=== PATIENT | male | born 1985 | race Caucasian/White ===

== ENCOUNTER 2017-01-05 16:32 | Emergency (ER) | payer MEDICAID ==
[~2017-01-05] VITALS: Ht 170.2 cm; Wt 79.6 kg
[2017-01-05 17:02] VITALS: BP 111/80
--- NOTE | 2017-01-05 17:08 | NUR ---
PATIENT PRESENTS TO ED WITH ANXIETY---SOB,LIGHTHEADNESS, . PT STATES . DENIES N/V/D; SKIN IS PINK/WARM/DRY; AAOX4 WITH EVEN AND STEADY GAIT; LUNGS CLEAR BL; HR EVEN AND REGULAR; PT DENIES ANY FEVER, CP, OR COUGH AT THIS TIME; PATIENT STATES PAIN OF 0/10 AT THIS TIME; VSS; PATIENT POSITIONED FOR COMFORT; HOB ELEVATED; BEDRAILS UP X2; BED DOWN. ER MD MADE AWARE OF PT STATUS.
--- NOTE | 2017-01-05 17:10 | NUR ---
PATIENT AMBULATED TO ER OF2.
--- NOTE | 2017-01-05 17:25 | NUR ---
SEEN BY ERMD IN OF
--- NOTE | 2017-01-05 17:40 | NUR ---
NO SIGN OF DISTRESS/ANXIETY. PATIENT VERY CALM
[2017-01-05 17:42] VITALS: BP 118/88
--- NOTE | 2017-01-05 17:42 | NUR ---
Patient discharged with v/s stable. Written and verbal after care instructions given and explained. Patient verbalized understanding. Ambulatory with steady gait. All questions addressed prior to discharge. Advised to follow up with PMD.
== END 2017-01-05 17:42 | disposition home or self-care (01) ==
LOC: MED 16:32
DX: F41.9 Anxiety disorder, unspecified (principal)
CPT/HCPCS: 99284

== ENCOUNTER 2018-12-22 18:41 | Emergency (ER) | payer MEDICAID ==
[~2018-12-22] VITALS: Ht 172.7 cm; Wt 80.5 kg
[2018-12-22 18:43] VITALS: BP 120/91
--- NOTE | 2018-12-22 18:46 | NUR ---
Patient ambulated to bed 8. RN evaluating patient at bedside.
--- NOTE | 2018-12-22 18:59 | NUR ---
33/M C/O DIFFICULTY BREATHING& LEFT CHEST PAIN , NAUSEA, DIZZY X 2 DAYS ALONG WITH INTERMITENT EPIGASTRIC PAIN X1 WEEK.MEDHX:ANXIETY. RX:ALPRAZOLAM, ZOLOFT. PATIENT STATES PAIN OF 5/10 AT THIS TIME; PATIENT POSITIONED FOR COMFORT; HOB ELEVATED; BEDRAILS UP X1; BED DOWN. ER MD MADE AWARE OF PT STATUS.
--- NOTE | 2018-12-22 19:07 | NUR ---
Pt report given to JUAN MILNER. Transfer of care at this time.
--- NOTE | 2018-12-22 19:15 | NUR ---
PT C/O OF DIFFICULTY BREATHING. RESPIRATIONS EVEN AND UNLABORED. RESPIRATIONS AT 15 AND OXYGEN SATURATION AT 97%. PT IN HIGH FOWLERS POSITION AND INSTRUCTED TO TAKE SLOW DEEP BREATHES IN THROUGH NOSE AND OUT MOUTH.
--- NOTE | 2018-12-22 19:23 | NUR ---
Dr. Martinez examining patient.
[2018-12-22] MEDS ORDERED: LORazepam 2 MG/ML VIAL IM ONE (19:40)
--- NOTE | 2018-12-22 19:49 | NUR ---
PT REFUSED MEDICATION. PER PT HIS HOME MEDICATION THAT HE TOOK PRIOR TO ER VISIT IS WORKING. ERMD NOTIFIED.
--- NOTE | 2018-12-22 19:49 | NUR ---
PT REFUSED MEDICATION. MEDICATION NOT GIVEN. RETURNED MEDICATION TO [facility]
--- NOTE | 2018-12-22 20:55 | NUR ---
PT RESTING IN BED COMFORTABLY ON CELL PHONE. VSS. WILL CONTINUE TO MONITOR.
--- NOTE | 2018-12-22 21:18 | NUR ---
Patient discharged with v/s stable. Written and verbal after care instructions given and explained. Instructed to avoid caffeine, relax and avoid stressful circumstances. Patient verbalized understanding. Ambulatory with steady gait. All questions addressed prior to discharge. Advised to follow up with PMD.
[2018-12-22 21:19] VITALS: BP 131/89
== END 2018-12-22 21:18 | disposition home or self-care (01) ==
LOC: MED 18:41
DX: F41.9 Anxiety disorder, unspecified (principal)
CPT/HCPCS: 71045; 93005; 96372; 99284; Q0092; J2060

== ENCOUNTER 2018-12-25 13:30 | Emergency (ER) | payer MEDICAID ==
[~2018-12-25] VITALS: Ht 170.2 cm; Wt 79.4 kg
[2018-12-25 13:35] VITALS: BP 135/87
[2018-12-25] MEDS ORDERED: GABA100C PO (13:44)
[2018-12-25] MEDS ORDERED: HYDR25CA1 PO (13:44)
[2018-12-25] MEDS ORDERED: ALPR1TAB17 PO (13:44)
--- NOTE | 2018-12-25 14:47 | NUR ---
PT AMBULATED TO ER BED 4
--- NOTE | 2018-12-25 15:02 | NUR ---
BIBA WITH C/O CHEST PAIN AND SOB SINCE THIS MORNING. PT REPORTS NOT TAKING RX MEDICATION LAST NIGHT; HX OF ANXIETY. UNABLE TO RECALL NAME OF MEDS. DENIES ANY CHEST PAIN AT THIS TIME. RESP EVEN AND UNLABORED. VSS.
[2018-12-25] MEDS ORDERED: DIAZEPAM 5 MG TAB PO ONE (15:05)
[2018-12-25 15:38] LABS: BASOPHILS % (AUTO) 0.4 % (0.0-2.0); EOSINOPHILS % (AUTO) 0.3 % (0.0-4.0); HEMATOCRIT 47.4 % (36-52); HEMOGLOBIN 16.2 g/dL (12.0-18.0); LYMPHOCYTES # (AUTO) 1.3 K/uL (2.0-11.5); LYMPHOCYTES % (AUTO) 20.3 % (20.5-51.1); MEAN CORPUSCULAR HEMOGLOBIN 31 pg (27-31); MEAN CORPUSCULAR HGB CONC 34 g/dL (33-37); MEAN CORPUSCULAR VOLUME 89.9 fL (80-94); MONOCYTES # (AUTO) 0.5 K/uL (0.8-1.0); NEUTROPHILS # (AUTO) 4.6 K/uL (1.8-7.7); PLATELET COUNT (AUTO) 235 K/uL (140-450); RED BLOOD CELL COUNT(AUTO) 5.27 MIL/uL (4.20-6.10); WHITE BLOOD COUNT (AUTO) 6.4 K/uL (4.8-10.8)
[2018-12-25 15:47] LABS: ANION GAP 10.4 (8-16); CARBON DIOXIDE 27.3 mmol/L (21-32); CREATININE 1.1 mg/dL (0.7-1.3); POTASSIUM 3.7 mmol/L (3.5-5.1)
[2018-12-25 15:52] LABS: ALBUMIN 3.9 g/dL (3.4-5.0); TOTAL BILIRUBIN 0.7 mg/dL (0.0-1.0)
--- NOTE | 2018-12-25 16:50 | NUR ---
PT VERBALIZED FEELING BETTER AFTER MEDICATION ADMINISTRATION. RESTING COMFORTABLY IN BED;VSS
[2018-12-25 17:01] VITALS: BP 126/82
--- NOTE | 2018-12-25 17:01 | NUR ---
Patient discharged with v/s stable. Written and verbal after care instructions given and explained. Patient alert, oriented and verbalized understanding of instructions. Ambulatory with steady gait. All questions addressed prior to discharge. ID band removed. Patient advised to follow up with PMD. Rx of VALIUM 5 MG given. Patient educated on indication of medication including possible reaction and side effects. Opportunity to ask questions provided and answered.
== END 2018-12-25 17:01 | disposition home or self-care (01) ==
LOC: MED 13:30
DX: F41.9 Anxiety disorder, unspecified (principal); I10 Essential (primary) hypertension; Z79.899 Other long term (current) drug therapy
CPT/HCPCS: 36415; 80053; 85025; 99284

== ENCOUNTER 2019-07-11 11:04 | Emergency (ER) | payer SELFPAY ==
[~2019-07-11] VITALS: Ht 171.4 cm; Wt 78.0 kg
[~2019-07-11 11:04] MED LIST: ALPR1TAB17 PO; GABA100C PO; HYDR25CA1 PO
[2019-07-11 11:09] VITALS: BP 117/71
--- NOTE | 2019-07-11 11:17 | NUR ---
AMB TO BED 03
--- NOTE | 2019-07-11 11:28 | NUR ---
PANIC ATTACK TODAY, TOOK XANAX 2X (TOTAL DOSE 2 MG), STATES "IT FEELS LIKE IT'S KIND OF KICKING IN". PT FEELS DIZZY NOW. AMB STEADY GAIT. DENIES CP, SOB AT THIS TIME. STATES PALPITATIONS EARLIER TODAY.PT AWAKE , ALERT, SCE,CBS BLF,NOT IN PAIN. HX- ANXIETY
[2019-07-11 12:40] VITALS: BP 110/72
--- NOTE | 2019-07-11 12:42 | NUR ---
Patient left with v/s stable . Patient left without discharge instruction. Ambulatory with steady gait.
--- NOTE | 2019-07-11 12:45 | NUR ---
Charge nurse Trudy sharpe.
== END 2019-07-11 12:45 | disposition home or self-care (01) ==
LOC: MED 11:04
DX: F41.9 Anxiety disorder, unspecified (principal); I10 Essential (primary) hypertension; Z79.899 Other long term (current) drug therapy
CPT/HCPCS: 99281

== ENCOUNTER 2019-10-27 15:29 | Emergency (ER) | payer MEDICAID ==
[~2019-10-27] VITALS: Ht 172.7 cm; Wt 81.6 kg
[2019-10-27 15:31] VITALS: BP 125/105
--- NOTE | 2019-10-27 15:38 | NUR ---
Patient ambulated to bed to bed 6. RN evaluating patient at bedside.
--- NOTE | 2019-10-27 15:48 | NUR ---
c/o sob with the slightest of activities when a couple of weeks pt states he is running 6min /mile. no accessory muscle use noted, full clear speech---adds he feels as he cant catch a deep inspiration denies cardiac or lung disease.
--- NOTE | 2019-10-27 16:23 | NUR ---
Dr. Wahl is evaluating the patient at bedside.
[2019-10-27] MEDS ORDERED: KETOROLAC 30 MG/ML VIAL IVP ONE (16:30)
[2019-10-27] MEDS ORDERED: NACL 0.9% 1,000 ML IV ONE (16:30)
[2019-10-27 16:52] LABS: BASOPHILS # (AUTO) 0.1 K/uL (0.00-0.22); BASOPHILS % (AUTO) 0.5 % (0.0-2.0); EOSINOPHILS # (AUTO) 0.1 K/uL (0-0.4); EOSINOPHILS % (AUTO) 0.7 % (0.0-4.0); HEMOGLOBIN 16.9 g/dL (12.0-18.0); LYMPHOCYTES % (AUTO) 7.5 % (20.5-51.1); MEAN CORPUSCULAR HEMOGLOBIN 32 pg (27-31); MEAN CORPUSCULAR HGB CONC 34 g/dL (33-37); MEAN CORPUSCULAR VOLUME 94.3 fL (80-94); MONOCYTES # (AUTO) 1.3 K/uL (0.8-1.0); MONOCYTES % (AUTO) 10.3 % (1.7-9.3); NEUTROPHILS # (AUTO) 10.6 K/uL (1.8-7.7); PLATELET COUNT (AUTO) 270 K/uL (140-450); RED CELL DISTRIBUTION WIDTH 14.7 % (11.6-13.7)
[2019-10-27 19:11] LABS: ANION GAP 19.5 (8-16); CARBON DIOXIDE 20.3 mmol/L (21-32); CREATININE 1.7 mg/dL (0.6-1.3); POTASSIUM 3.8 mmol/L (3.5-5.1)
[2019-10-27 19:21] VITALS: BP 138/72
--- NOTE | 2019-10-27 19:22 | NUR ---
Patient discharged with v/s stable. Written and verbal after care instructions given and explained. Patient alert, oriented and verbalized understanding of instructions. Ambulatory with steady gait. All questions addressed prior to discharge. ID band removed. Patient advised to follow up with PMD. Rx NO given. Patient educated on indication of medication including possible reaction and side effects. Opportunity to ask questions provided and answered.
== END 2019-10-27 19:22 | disposition home or self-care (01) ==
LOC: MED 15:29
DX: F41.9 Anxiety disorder, unspecified (principal); R06.02 Shortness of breath; R42 Dizziness and giddiness
CPT/HCPCS: 36415; 80048; 85025; 96361; 96374; 99283; J1885; J7030

== ENCOUNTER 2019-12-25 09:38 | Emergency (ER) | payer MEDICAID ==
[~2019-12-25] VITALS: Ht 170.2 cm; Wt 81.6 kg
[2019-12-25 09:42] VITALS: BP 158/106
--- NOTE | 2019-12-25 09:56 | NUR ---
34/M STATES WOKE UP FEELING "HEAVY" WITH SHAKINESS AND CHILLS X 2 DAYS A/W NAUSEA. PER PT LAST DRINK 2 DAYS AGO APROXIMATELY 750ML OF VODKA. PT PRESENTS HYPERTENSIVE, EUPNIC, AFEBRILE, A/OX4, AMBULATORY. COMPLAINTS OF PAIN ON THE LUQ, INTERMITTENT, ACHY/THROBBING SINCE LAST NIGHT. WANTS HIS "LIVER CHECKED". DENIES VOMITING, FEVER, COUGH, SOB. APPEARS NAD. FULL CLEAR SENTENCES. HX ALCOHOL ABUSE, ANXIETY RX ZOLOFT,XANAX, VISTARIL
--- NOTE | 2019-12-25 10:13 | NUR ---
DR. HENDRICKS EVALUATING PT AT BEDSIDE
--- NOTE | 2019-12-25 10:59 | NUR ---
PROGRAM WRITER AT BEDSIDE FOR BLOOD DRAW
[2019-12-25 11:36] LABS: BASOPHILS # (AUTO) 0.1 K/uL (0.00-0.22); BASOPHILS % (AUTO) 1.2 % (0.0-2.0); EOSINOPHILS % (AUTO) 0.6 % (0.0-4.0); HEMOGLOBIN 15.8 g/dL (12.0-18.0); LYMPHOCYTES # (AUTO) 1.2 K/uL (2.0-11.5); MEAN CORPUSCULAR HEMOGLOBIN 32 pg (27-31); MEAN CORPUSCULAR HGB CONC 34 g/dL (33-37); MEAN CORPUSCULAR VOLUME 95.6 fL (80-94); MONOCYTES # (AUTO) 0.7 K/uL (0.8-1.0); MONOCYTES % (AUTO) 10.8 % (1.7-9.3); NEUTROPHILS # (AUTO) 4.5 K/uL (1.8-7.7); NEUTROPHILS % (AUTO) 68.4 % (42.2-75.2); PLATELET COUNT (AUTO) 306 K/uL (140-450); RED BLOOD CELL COUNT(AUTO) 4.92 MIL/uL (4.20-6.10); RED CELL DISTRIBUTION WIDTH 13.8 % (11.6-13.7); WHITE BLOOD COUNT (AUTO) 6.5 K/uL (4.8-10.8)
[2019-12-25 12:03] LABS: ALBUMIN 3.9 g/dL (3.4-5.0); ANION GAP 14.5 (8-16); CARBON DIOXIDE 25.5 mmol/L (21-32); TOTAL BILIRUBIN 0.5 mg/dL (0.0-1.0)
--- NOTE | 2019-12-25 12:12 | NUR ---
DR HENDRICKS SPEAKING W/ PT AT BEDSIDE
[2019-12-25 12:13] VITALS: BP 150/102
== END 2019-12-25 12:13 | disposition home or self-care (01) ==
LOC: MED 09:38
DX: F10.239 Alcohol dependence with withdrawal, unspecified (principal); F41.9 Anxiety disorder, unspecified; I10 Essential (primary) hypertension; Z02.89 Encounter for other administrative examinations; Z79.899 Other long term (current) drug therapy
CPT/HCPCS: 36415; 80053; 85025; 85610; 99283

== ENCOUNTER 2020-02-29 21:41 | Emergency (ER) | payer MEDICAID ==
[~2020-02-29] VITALS: Ht 170.2 cm; Wt 83.9 kg
[2020-02-29 21:46] VITALS: BP 140/106
[2020-02-29] MEDS ORDERED: MULTIVITAMIN-12 10 ML, THIAMINE 100 MG, FOLIC ACID 1 MG, MAGNESIUM SULFATE 50% 2,000 MG... IV SCH ×5 (22:00)
[2020-02-29] MEDS ORDERED: LORazepam 2 MG/ML VIAL IVP ONE (22:15)
[2020-02-29] MEDS ORDERED: MAG SULF 2000 MG/WATER PREMIX 50 ML IV ONE (22:26)
[2020-02-29] MEDS ORDERED: THIAMINE 200 MG/2 ML VIAL ONE (22:27)
[2020-02-29] MEDS ORDERED: FOLIC ACID 5 MG/ML SYR ONE (22:28)
[2020-02-29] MEDS ORDERED: MULTIVITAMIN-12 10 ML VIAL IV ONE (22:28)
[2020-02-29 22:32] LABS: BASOPHILS % (AUTO) 0.5 % (0.0-2.0); EOSINOPHILS # (AUTO) 0.1 K/uL (0-0.4); EOSINOPHILS % (AUTO) 0.9 % (0.0-4.0); HEMATOCRIT 45.2 % (36-52); HEMOGLOBIN 15.7 g/dL (12.0-18.0); LYMPHOCYTES # (AUTO) 1.3 K/uL (2.0-11.5); LYMPHOCYTES % (AUTO) 18.2 % (20.5-51.1); MEAN CORPUSCULAR HEMOGLOBIN 33 pg (27-31); MEAN CORPUSCULAR HGB CONC 35 g/dL (33-37); MEAN CORPUSCULAR VOLUME 93.5 fL (80-94); MONOCYTES # (AUTO) 0.5 K/uL (0.8-1.0); MONOCYTES % (AUTO) 7.8 % (1.7-9.3); NEUTROPHILS % (AUTO) 72.6 % (42.2-75.2); PLATELET COUNT (AUTO) 312 K/uL (140-450); RED BLOOD CELL COUNT(AUTO) 4.83 MIL/uL (4.20-6.10); RED CELL DISTRIBUTION WIDTH 14.3 % (11.6-13.7); WHITE BLOOD COUNT (AUTO) 6.9 K/uL (4.8-10.8)
[2020-02-29 22:46] LABS: ALBUMIN 3.7 g/dL (3.4-5.0); ANION GAP 16.4 (8-16); CARBON DIOXIDE 22.1 mmol/L (21-32); CREATININE 1.3 mg/dL (0.6-1.3); POTASSIUM 3.5 mmol/L (3.5-5.1); TOTAL BILIRUBIN 0.5 mg/dL (0.0-1.0)
[2020-02-29] MEDS ORDERED: INTUBATION KIT MC ONE (23:47)
[2020-03-01 01:11] VITALS: BP 139/85
== END 2020-03-01 01:12 | disposition home or self-care (01) ==
LOC: MED 21:41
DX: F10.10 Alcohol abuse, uncomplicated (principal); I10 Essential (primary) hypertension; F41.9 Anxiety disorder, unspecified; Z79.899 Other long term (current) drug therapy
CPT/HCPCS: 36415; 80053; 85025; 96365; 96366; 96375; 99284; A9153; J2060; J3411; J3475; J3490

== ENCOUNTER 2020-07-21 11:40 | Emergency (ER) | payer MEDICAID ==
[~2020-07-21] VITALS: Ht 170.2 cm; Wt 85.3 kg
[2020-07-21 11:43] VITALS: BP 129/91
--- NOTE | 2020-07-21 11:45 | NUR ---
Patient ambulated to bed 9 with steady/even gait.
--- NOTE | 2020-07-21 11:55 | NUR ---
35 y/o M coming in from home with c/c vomiting x 3 days. Patient states he is experiencing "alcohol withdraw symptoms," states he has experienced this before but never this bad. Patient states nausea and vomiting x 4 episodes of clear/yellowish liquid since this morning. Pt states associated dizziness, headache x this morning, heartburn x yesterday. Pt states headache to bilateral temporal region of head, 6/10, sharp/intermittent, non-radiating. Pt presents with slight tremors to right hand. Pt admits to alcohol usage; states he drank 2 pints of vodka last night around 11pm, denies any beers, street drugs. Pt denies fever/chills, chest pain, cough, abdominal pain. Pt states he took Tums and Pepto bismo prior to arrival with no relief. Pt placed onto school lunch monitor. Bed locked in lowest position, side rails x 1, call light in reach. PMH: Anxiety Meds: Xanax NKA Sx: Denies
--- NOTE | 2020-07-21 12:25 | NUR ---
Note undone in EDM - 07/21/20 at 1230 by MEDJAIME 35 y/o M coming in from home with c/c vomiting x 3 days. Patient states he is experiencing "alcohol withdraw symptoms," states he has experienced this before but never this bad. Patient states nausea and vomiting x 4 episodes of clear/yellowish liquid since this morning. Pt states associated dizziness, headache x this morning, heartburn x yesterday. Pt states headache to bilateral temporal region of head, 6/10, sharp/intermittent, non-radiating. Pt presents with slight tremors to right hand. Pt admits to alcohol usage; states he drank 2 pints of vodka last night around 11pm, denies any beers, street drugs. Pt denies fever/chills, chest pain, cough, abdominal pain. Pt states he took Tums and Pepto bismo prior to arrival with no relief. Pt placed onto oracle fusion middleware developer. Bed locked in lowest position, side rails x 1, call light in reach. PMH: Anxiety Meds: Xanax NKA Sx: Denies
--- NOTE | 2020-07-21 12:50 | NUR ---
Lab at bedside
[2020-07-21 13:03] LABS: BASOPHILS # (AUTO) 0.1 K/uL (0.00-0.22); BASOPHILS % (AUTO) 1.8 % (0.0-2.0); EOSINOPHILS # (AUTO) 0.1 K/uL (0-0.4); EOSINOPHILS % (AUTO) 1.3 % (0.0-4.0); HEMATOCRIT 45.5 % (36-52); HEMOGLOBIN 15.5 g/dL (12.0-18.0); LYMPHOCYTES # (AUTO) 1.3 K/uL (2.0-11.5); MEAN CORPUSCULAR HEMOGLOBIN 32 pg (27-31); MEAN CORPUSCULAR HGB CONC 34 g/dL (33-37); MONOCYTES # (AUTO) 0.3 K/uL (0.8-1.0); MONOCYTES % (AUTO) 5.1 % (1.7-9.3); NEUTROPHILS # (AUTO) 3.4 K/uL (1.8-7.7); NEUTROPHILS % (AUTO) 65.8 % (42.2-75.2); PLATELET COUNT (AUTO) 292 K/uL (140-450); RED BLOOD CELL COUNT(AUTO) 4.79 MIL/uL (4.20-6.10); RED CELL DISTRIBUTION WIDTH 13.8 % (11.6-13.7); WHITE BLOOD COUNT (AUTO) 5.1 K/uL (4.8-10.8)
[2020-07-21] MEDS ORDERED: chlordiazePOXIDE 25 MG CAP PO SCH (13:10)
[2020-07-21] MEDS ORDERED: ONDANSETRON 4 MG/2 ML VIAL IVP ONE (13:10)
[2020-07-21] MEDS ORDERED: LORazepam 2 MG/ML VIAL IVP ONE (13:10)
[2020-07-21] MEDS ORDERED: NACL 0.9% 1,000 ML IV ONE (13:10)
[2020-07-21 13:17] LABS: PROTHROMBIN TIME 10.1 secs (10.8-13.4)
[2020-07-21 13:22] LABS: ALBUMIN 3.6 g/dL (3.4-5.0); ANION GAP 13.5 (8-16); CARBON DIOXIDE 26.3 mmol/L (21-32); CREATININE 0.9 mg/dL (0.6-1.3); POTASSIUM 3.8 mmol/L (3.5-5.1); TOTAL BILIRUBIN 0.4 mg/dL (0.0-1.0)
--- NOTE | 2020-07-21 13:36 | NUR ---
Patient states heartburn sensation; Dr. Gonzales made aware and new orders placed.
[2020-07-21] MEDS ORDERED: ALUMINUM HYD/MAG/SIMETHICONE 30 ML UDC PO SCH (14:45)
[2020-07-21] MEDS ORDERED: FAMOTIDINE 20 MG TAB PO SCH (14:45)
[2020-07-21] MEDS ORDERED: LIB25 PO ×2 (14:53→14:57)
[2020-07-21 15:05] VITALS: BP 135/88
--- NOTE | 2020-07-21 15:05 | NUR ---
Patient discharged with v/s stable. Written and verbal after care instructions given and explained. Patient alert, oriented and verbalized understanding of instructions. Ambulatory with steady gait. All questions addressed prior to discharge. ID band removed. Patient advised to follow up with PMD. Rx of LIBRIUM given. Patient educated on indication of medication including possible reaction and side effects, pt advised to not take drink alcohol while taking this medication and to skip taking this medication if patient drinks ETOH . Opportunity to ask questions provided and answered.
== END 2020-07-21 15:05 | disposition home or self-care (01) ==
LOC: MED 11:40
DX: F10.239 Alcohol dependence with withdrawal, unspecified (principal); R11.10 Vomiting, unspecified; Y90.9 Presence of alcohol in blood, level not specified
CPT/HCPCS: 36415; 80053; 83690; 85025; 85610; 96361; 96374; 96375; 99284; J2060; J2405; J7030

== ENCOUNTER 2020-10-31 08:28 | Emergency (ER) | payer MEDICAID ==
[~2020-10-31] VITALS: Ht 170.2 cm; Wt 83.9 kg
[~2020-10-31 08:28] MED LIST changes: +LIB25 PO
[2020-10-31 08:36] VITALS: BP 117/90
--- NOTE | 2020-10-31 08:42 | NUR ---
pt ambulated to bed 03
--- NOTE | 2020-10-31 08:43 | NUR ---
Dr. Pineda is evaluating patient at bedside.
--- NOTE | 2020-10-31 08:45 | NUR ---
35 y/o M BIB self from home with c/c chest pain. Patient A&Ox4, ambulatory, states feeling alcohol withdrawal symptoms with associated epigastric/chest pain, vomiting x 2 episodes, and increased anxiety. Patient reports epigastric pain, 9/10, "heartburn"/constant, non-radiating pain. Patient also states vomiting x 2 episodes and last BM of dark, semi-formed stools. Patient reports last drink 12PM on 10/30/20; symptoms began +tremors since 10PM last night. Patient reports alcohol intake of 750 mL of vodka per day x 1.5 weeks. Patient denies any medications prior to arrival. VSS, abd soft/round, skin pink/warm/dry. Last BM today, dark/semi-formed. classroom monitor in place. Bed locked in lowest position, side rails x 1, call light in reach. PMH: Etoh, anxiety, HTN Medes; Librium, alprazolam NKA Sx: Denies
--- NOTE | 2020-10-31 08:45 | NUR ---
EMT at bedside for EKG.
[2020-10-31] MEDS ORDERED: NACL 0.9% 1,000 ML IV ONE (09:00)
[2020-10-31] MEDS ORDERED: FAMOTIDINE 20 MG/2 ML VIAL IVP ONE (09:00)
[2020-10-31] MEDS ORDERED: ONDANSETRON 4 MG/2 ML VIAL IVP ONE (09:00)
[2020-10-31] MEDS ORDERED: LORazepam 2 MG/ML VIAL IVP ONE (09:00)
--- NOTE | 2020-10-31 09:05 | NUR ---
Blood sample collected, handed to CPT Sebastian at ER bedside.
[2020-10-31 09:15] LABS: BASOPHILS % (AUTO) 0.3 % (0.0-2.0); EOSINOPHILS # (AUTO) 0.1 K/uL (0-0.4); EOSINOPHILS % (AUTO) 1.3 % (0.0-4.0); HEMATOCRIT 39.7 % (36-52); HEMOGLOBIN 13.5 g/dL (12.0-18.0); LYMPHOCYTES % (AUTO) 18.3 % (20.5-51.1); MEAN CORPUSCULAR HEMOGLOBIN 33 pg (27-31); MEAN CORPUSCULAR HGB CONC 34 g/dL (33-37); MONOCYTES # (AUTO) 0.5 K/uL (0.8-1.0); MONOCYTES % (AUTO) 9.5 % (1.7-9.3); NEUTROPHILS # (AUTO) 3.8 K/uL (1.8-7.7); NEUTROPHILS % (AUTO) 70.6 % (42.2-75.2); PLATELET COUNT (AUTO) 188 K/uL (140-450); RED BLOOD CELL COUNT(AUTO) 4.14 MIL/uL (4.20-6.10); RED CELL DISTRIBUTION WIDTH 14.6 % (11.6-13.7); WHITE BLOOD COUNT (AUTO) 5.3 K/uL (4.8-10.8)
[2020-10-31 09:27] LABS: ALBUMIN 3.3 g/dL (3.4-5.0); ANION GAP 12.9 (8-16); CARBON DIOXIDE 25.6 mmol/L (21-32); CREATININE 0.8 mg/dL (0.6-1.3); POTASSIUM 3.5 mmol/L (3.5-5.1); TOTAL BILIRUBIN 0.2 mg/dL (0.0-1.0)
--- NOTE | 2020-10-31 09:47 | NUR ---
Lights dimmed per pt request. Patient rates pain 5/10; denies any nausea. vehicle monitor technician remains in place; RR even/unlabored. Bed locked in lowest position, side rails x 1, call light in reach.
[2020-10-31] MEDS ORDERED: ONDA-24 SL (10:21)
[2020-10-31] MEDS ORDERED: LORA-476 PO (10:21)
--- NOTE | 2020-10-31 10:23 | NUR ---
Dr. Pineda is reevaluating the patient at bedside.
[2020-10-31 10:27] VITALS: BP 131/62
--- NOTE | 2020-10-31 10:27 | NUR ---
Patient discharged with v/s stable. Written and verbal after care instructions given and explained. Patient alert, oriented and verbalized understanding of instructions. Ambulatory with steady gait. All questions addressed prior to discharge. ID band removed. Patient advised to follow up with PMD. Rx of Zofran, Ativan given. Patient educated on indication of medication including possible reaction and side effects. Opportunity to ask questions provided and answered.
== END 2020-10-31 10:27 | disposition home or self-care (01) ==
LOC: MED 08:28
DX: F10.239 Alcohol dependence with withdrawal, unspecified (principal); R11.10 Vomiting, unspecified; F41.9 Anxiety disorder, unspecified; Z79.899 Other long term (current) drug therapy
CPT/HCPCS: 36415; 80053; 83690; 85025; 93005; 96361; 96374; 96375; 99284; J2060; J2405; J3490; J7030

== ENCOUNTER 2020-11-14 10:42 | Emergency (ER) | payer MEDICAID ==
[~2020-11-14] VITALS: Ht 170.2 cm; Wt 86.6 kg
[~2020-11-14 10:42] MED LIST changes: +LORA-476 PO; +ONDA-24 SL
[2020-11-14 10:49] VITALS: BP 139/74
--- NOTE | 2020-11-14 10:55 | NUR ---
Patient ambulated to bed 07 with steady/even gait.
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
--- NOTE | 2020-11-14 11:15 | NUR ---
Dr. Sanders is evaluating patient at bedside.
[2020-11-14] MEDS ORDERED: ONDANSETRON 4 MG ODT PO ONE (11:20)
[2020-11-14] MEDS ORDERED: fentaNYL citrate 0.05 MG/ML VIAL IM ONE (11:20)
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
--- NOTE | 2020-11-14 11:35 | NUR ---
Patient to CT via gurney.
--- NOTE | 2020-11-14 11:45 | NUR ---
Pt back from CT via [facility].
--- NOTE | 2020-11-14 12:34 | NUR ---
Patient reports positive relief from pain; 8/10; denies nausea.
[2020-11-14] MEDS ORDERED: NAPR-54 PO (13:28)
--- NOTE | 2020-11-14 13:32 | NUR ---
Dr. Sanders is reevaluating patient at bedside.
--- NOTE | 2020-11-14 13:39 | NUR ---
Meal challenge per Dr. Sanders. [place] sandwich, campos crackers and apple juice provided at bedside.
[2020-11-14 14:02] VITALS: BP 139/74
--- NOTE | 2020-11-14 14:02 | NUR ---
Patient discharged with v/s stable. Written and verbal after care instructions given HEAD INJURY and explained. Patient alert, oriented and verbalized understanding of instructions. Ambulatory with steady gait. All questions addressed prior to discharge. ID band removed. Patient advised to follow up with PMD. Rx of NAPROXEN 500MG PO BID PRN PAIN given. Patient educated on indication of medication including possible reaction and side effects. Opportunity to ask questions provided and answered.
== END 2020-11-14 14:02 | disposition home or self-care (01) ==
LOC: MED 10:42
DX: S02.2XXA Fracture of nasal bones, initial encounter for closed fracture (principal); S00.93XA Contusion of unspecified part of head, initial encounter; F41.9 Anxiety disorder, unspecified; Z79.899 Other long term (current) drug therapy; Y04.8XXA Assault by other bodily force, initial encounter; Y93.89 Activity, other specified; Y92.89 Other specified places as the place of occurrence of the external cause; Y99.8 Other external cause status
CPT/HCPCS: 70450; 70486; 96372; 99285; J3010; Q0162

== ENCOUNTER 2020-11-23 18:41 | Emergency (ER) | payer MEDICAID ==
[~2020-11-23] VITALS: Ht 170.2 cm; Wt 81.2 kg
[~2020-11-23 18:41] MED LIST changes: +NAPR-54 PO
[2020-11-23 19:06] VITALS: BP 145/91
[2020-11-23] MEDS ORDERED: ONDANSETRON 4 MG/2 ML VIAL IVP ONE (20:30)
[2020-11-23] MEDS ORDERED: NACL 0.9% 1,000 ML IV ONE ×2 (20:30)
[2020-11-23] MEDS ORDERED: MORPHINE SULFATE 4 MG/ML SYR IVP ONE (20:30)
[2020-11-23] MEDS ORDERED: PIPERACILLIN/TAZOBACTAM 3.375 GM in DEXTROSE 5% 50 ML IV ONE (20:30)
--- NOTE | 2020-11-23 20:50 | NUR ---
TO ER BED 4
[2020-11-23 21:31] LABS: BASOPHILS % (AUTO) 0.3 % (0.0-2.0); EOSINOPHILS # (AUTO) 0.1 K/uL (0-0.4); HEMATOCRIT 47.6 % (36-52); HEMOGLOBIN 16.1 g/dL (12.0-18.0); LYMPHOCYTES # (AUTO) 1.8 K/uL (2.0-11.5); MEAN CORPUSCULAR HEMOGLOBIN 33 pg (27-31); MEAN CORPUSCULAR HGB CONC 34 g/dL (33-37); MEAN CORPUSCULAR VOLUME 96.1 fL (80-94); MONOCYTES # (AUTO) 1.1 K/uL (0.8-1.0); MONOCYTES % (AUTO) 9.4 % (1.7-9.3); NEUTROPHILS # (AUTO) 8.9 K/uL (1.8-7.7); NEUTROPHILS % (AUTO) 74.3 % (42.2-75.2); PLATELET COUNT (AUTO) 401 K/uL (140-450); RED BLOOD CELL COUNT(AUTO) 4.95 MIL/uL (4.20-6.10); WHITE BLOOD COUNT (AUTO) 11.9 K/uL (4.8-10.8)
[2020-11-23] MEDS ORDERED: MORPHINE SULFATE 4 MG/ML SYR ONE (21:39)
[2020-11-23] MEDS ORDERED: ONDANSETRON 4 MG/2 ML VIAL ONE (21:39)
[2020-11-23] MEDS ORDERED: KETOROLAC 30 MG/ML VIAL IVP ONE (21:45)
[2020-11-23 22:07] LABS: ALBUMIN 4.5 g/dL (3.4-5.0); ANION GAP 17.7 (8-16); CARBON DIOXIDE 22.1 mmol/L (21-32); CREATININE 1.5 mg/dL (0.6-1.3); POTASSIUM 3.8 mmol/L (3.5-5.1); TOTAL BILIRUBIN 0.4 mg/dL (0.0-1.0)
--- NOTE | 2020-11-23 22:30 | NUR ---
PT. TAKEN TO CT VIA W/C
[2020-11-23] MEDS ORDERED: PIPERACILLIN/TAZOBACTAM 3.375 GM VIAL IV ONE (22:58)
[2020-11-23] MEDS ORDERED: VANCOMYCIN 1,000 MG in DEXTROSE 5% 250 ML IV ONE (23:25)
--- NOTE | 2020-11-24 | NUR ---
PT. SITTING ON BED COMFORTABLY WITH PHONE IN HAND, VOICES NO COMPLAINTS AT THIS TIME. WILL CONTINUE TO MONITOR
[2020-11-24] MEDS ORDERED: VANCOMYCIN 1,000 MG VIAL ONE (00:17)
--- NOTE | 2020-11-24 01:00 | NUR ---
PT. IS A 35 Y/O MALE THAT CAME INTO ED WITH C/O OF ABSCESS ON LEFT SIDE NOSE. PT. STATES THAT HE HAD A FRACTURED NOSE A WEEK AGO. PT. STATES THAT HE WANTED TO CHECK IF THE NOSE WAS INFECTED DUE TO DRAINAGE AND CONSTANT PRESSURE. PT. RATES PAIN 8/10 ON THE PAIN SCALE AT THIS TIME. PT. ALSO STATES WHEN HE URINATES, THERE IS A BURNING SENSATION. DENIES N/V/D; SKIN IS PINK/WARM/DRY; AAOX4 WITH EVEN AND STEADY GAIT; HR EVEN AND REGULAR; PT DENIES ANY FEVER, CP, SOB, OR COUGH AT THIS TIME; VSS; PATIENT POSITIONED FOR COMFORT; HOB ELEVATED; BEDRAILS UP X2; BED DOWN. ER MD MADE AWARE OF PT STATUS. PMH: DENIES ALLERGIES: CHRISTOPHER
--- NOTE | 2020-11-24 01:04 | NUR ---
CLAUDIA STANISLAV AT BEDSIDE
--- NOTE | 2020-11-24 01:50 | NUR ---
CALLED REPORT TO ANNIA KIRK ([facility] ER)
--- NOTE | 2020-11-24 01:56 | NUR ---
Patient to be transferred to [facility]. Is being transferred due to HIGHER LEVEL OF CARE. Receiving facility has accepting physician and available space. ER physician has signed transfer form. Patient or responsible republican has agreed to transfer and signed form. Patient belongings inventoried and will be sent with patient. Copy of nursing notes, lab reports, EKG, Physicians Orders and X-rays to be sent with patient. Report called to ANNIA KIRK at receiving facility. Ambulance service has been called for transfer. ETA is 30 MINS.
[2020-11-24 02:11] VITALS: BP 120/70
--- NOTE | 2020-11-24 02:11 | NUR ---
[facility] AT BEDSIDE. PT. TAKEN TO [facility] VIA [facility], ACCOMPANIED BY 2 HUMAN RESOURCES PROJECT COORDINATOR.
== END 2020-11-24 02:11 | disposition short-term general hospital (02) ==
LOC: MED 18:41
DX: L03.211 Cellulitis of face (principal); L02.01 Cutaneous abscess of face; H53.8 Other visual disturbances; Z79.899 Other long term (current) drug therapy
CPT/HCPCS: 36415; 70487; 80053; 83605; 85025; 87040; 96361; 96365; 96367; 96375; 99285; J1885; J2543; J3370; J7030; Q9967; J2270; J2405

== ENCOUNTER 2021-05-24 11:22 | Emergency (ER) | payer MEDICAID ==
[~2021-05-24] VITALS: Ht 172.7 cm; Wt 89.8 kg
[~2021-05-24 11:22] MED LIST changes: +ONDA-188 SL; -ONDA-24 SL
[2021-05-24 11:43] VITALS: BP 139/95
--- NOTE | 2021-05-24 12:42 | NUR ---
pt seen and d/c by dr syed, no nursing interventions provided
--- NOTE | 2021-05-24 12:43 | NUR ---
pt cleared for discharge per dr syed. pt told dr syed he did not want discharge paperwork.
== END 2021-05-24 12:43 | disposition home or self-care (01) ==
LOC: MED 11:22
DX: F10.239 Alcohol dependence with withdrawal, unspecified (principal); F12.90 Cannabis use, unspecified, uncomplicated; F41.9 Anxiety disorder, unspecified; Z76.0 Encounter for issue of repeat prescription; Z79.899 Other long term (current) drug therapy
CPT/HCPCS: 99283

== ENCOUNTER 2021-10-31 10:36 | Emergency (ER) | payer MEDICAID ==
[~2021-10-31] VITALS: Ht 172.7 cm; Wt 86.6 kg
[2021-10-31 10:44] VITALS: BP 138/95
--- NOTE | 2021-10-31 10:50 | NUR ---
PT AMBULATED TO BED 02.
--- NOTE | 2021-10-31 11:05 | NUR ---
36 Y/O M C/O ALCOHOL WITHDRAWAL, UPPER EPIGASTRIC PAIN 12/13. STATED THAT HE WAS DRINKING 1 LITER OF VODKA DAILY FOR A WEEK AND STOPPED TODAY "COLD TURKEY". STATES HE'S FEELING SHAKY AND "WEIRD". +N/V NKA PMH: HTN, ANXIETY RX: ZOLOFT, XANAX
--- NOTE | 2021-10-31 11:13 | NUR ---
DR OROSCO AT BEDSIDE.
[2021-10-31] MEDS ORDERED: ONDANSETRON 4 MG/2 ML VIAL IVP ONE (11:20)
[2021-10-31] MEDS ORDERED: FAMOTIDINE 20 MG/2 ML VIAL IVP ONE (11:20)
[2021-10-31] MEDS ORDERED: LORazepam 2 MG/ML VIAL IVP ONE (11:20)
[2021-10-31] MEDS ORDERED: NACL 0.9% 1,000 ML IV SCH (11:20)
--- NOTE | 2021-10-31 11:49 | NUR ---
LAB AT BEDSIDE.
--- NOTE | 2021-10-31 11:55 | NUR ---
LAB AT BEDSIDE.
[2021-10-31 12:02] LABS: BASOPHILS % (AUTO) 0.5 % (0.0-2.0); EOSINOPHILS # (AUTO) 0.1 K/uL (0-0.4); EOSINOPHILS % (AUTO) 1.5 % (0.0-4.0); HEMATOCRIT 42.4 % (36-52); HEMOGLOBIN 14.5 g/dL (12.0-18.0); LYMPHOCYTES # (AUTO) 1.1 K/uL (2.0-11.5); LYMPHOCYTES % (AUTO) 18.3 % (20.5-51.1); MEAN CORPUSCULAR HEMOGLOBIN 32 pg (27-31); MEAN CORPUSCULAR HGB CONC 34 g/dL (33-37); MEAN CORPUSCULAR VOLUME 93.5 fL (80-94); MONOCYTES # (AUTO) 0.4 K/uL (0.8-1.0); MONOCYTES % (AUTO) 7.1 % (1.7-9.3); NEUTROPHILS # (AUTO) 4.4 K/uL (1.8-7.7); NEUTROPHILS % (AUTO) 72.6 % (42.2-75.2); PLATELET COUNT (AUTO) 193 K/uL (140-450); RED BLOOD CELL COUNT(AUTO) 4.54 MIL/uL (4.20-6.10); RED CELL DISTRIBUTION WIDTH 13.6 % (11.6-13.7); WHITE BLOOD COUNT (AUTO) 6.1 K/uL (4.8-10.8)
[2021-10-31 12:22] LABS: ALBUMIN 3.2 g/dL (3.4-5.0); ANION GAP 11.6 (8-16); CARBON DIOXIDE 26.1 mmol/L (21-32); CREATININE 0.9 mg/dL (0.6-1.3); POTASSIUM 3.7 mmol/L (3.5-5.1); TOTAL BILIRUBIN 0.2 mg/dL (0.0-1.0)
[2021-10-31] MEDS ORDERED: LIB25 PO (13:11)
[2021-10-31 13:30] VITALS: BP 139/82
--- NOTE | 2021-10-31 13:31 | NUR ---
Patient discharged with v/s stable. Written and verbal after care instructions given and explained. Patient alert, oriented and verbalized understanding of instructions. Ambulatory with steady gait. All questions addressed prior to discharge. ID band removed. Patient advised to follow up with PMD. Rx of CHLORDIAZEPOXIDE HYDROCHLORI given. Opportunity to ask questions provided and answered.
--- NOTE | 2021-10-31 13:32 | NUR ---
The patient's care was reviewed and supervised by Alea Nelson RN.
--- NOTE | 2021-11-01 07:48 | NUR ---
LATE ENTRY. 0.9% NS DISCONTINUED AT 1331 ON 10/31/21.
== END 2021-10-31 13:31 | disposition home or self-care (01) ==
LOC: MED 10:36
DX: F10.139 Alcohol abuse with withdrawal, unspecified (principal); Y90.9 Presence of alcohol in blood, level not specified; F41.9 Anxiety disorder, unspecified; R06.02 Shortness of breath; R11.2 Nausea with vomiting, unspecified
CPT/HCPCS: 36415; 80053; 83690; 85025; 93005; 96361; 96374; 96375; 99284; J2060; J2405; J3490; J7030

== ENCOUNTER 2022-03-19 12:29 | Emergency (ER) | payer MEDICAID ==
[~2022-03-19] VITALS: Ht 172.7 cm; Wt 73.0 kg
[2022-03-19 12:41] VITALS: BP 134/79
[2022-03-19] MEDS ORDERED: NACL 0.9% 1,000 ML IV ONE (12:55)
--- NOTE | 2022-03-19 13:17 | NUR ---
37 Y/O MALE BIB SELF C/O SOB, DIZZINESS, CP AND SHAKING, PER PT HE WAS SEEN IN [place] 2 DAYS AGO FOR ETOH, STATES THAT HIS LAST DRINK WAS 3 BOTTLES OF WINE 2DAYS AGO, STATES THAT HE "BLACKED OUT YESTERDAY" UNKNOWN IF SEIZURE. pmh: htn, SEIZURE nka med: xanax
[2022-03-19] MEDS ORDERED: DIAZEPAM PFS 10 MG/2 ML SYR IVP ONE (13:35)
[2022-03-19 13:52] LABS: BASOPHILS # (AUTO) 0.1 K/uL (0.00-0.22); BASOPHILS % (AUTO) 1.1 % (0.0-2.0); EOSINOPHILS # (AUTO) 0.1 K/uL (0-0.4); EOSINOPHILS % (AUTO) 2.2 % (0.0-4.0); HEMATOCRIT 44.4 % (36-52); HEMOGLOBIN 15.2 g/dL (12.0-18.0); MEAN CORPUSCULAR HEMOGLOBIN 32 pg (27-31); MEAN CORPUSCULAR HGB CONC 34 g/dL (33-37); MEAN CORPUSCULAR VOLUME 94.4 fL (80-94); MONOCYTES # (AUTO) 0.5 K/uL (0.8-1.0); MONOCYTES % (AUTO) 9.5 % (1.7-9.3); NEUTROPHILS # (AUTO) 3.1 K/uL (1.8-7.7); NEUTROPHILS % (AUTO) 66.2 % (42.2-75.2); PLATELET COUNT (AUTO) 210 K/uL (140-450); RED BLOOD CELL COUNT(AUTO) 4.71 MIL/uL (4.20-6.10); WHITE BLOOD COUNT (AUTO) 4.7 K/uL (4.8-10.8)
--- NOTE | 2022-03-19 13:54 | NUR ---
URINAL HANDED TO PT STATED THAT HE CANT URINATE AT THIS TIME
--- NOTE | 2022-03-19 13:57 | NUR ---
X-Ray at bedside.
[2022-03-19 14:29] LABS: POTASSIUM 3.9 mmol/L (3.5-5.1); SODIUM SERUM 138 mmol/L (136-145)
[2022-03-19 14:30] LABS: ANION GAP 16.5 (8-16); CARBON DIOXIDE 23.4 mmol/L (21-32); CHLORIDE 102 mmol/L (98-107); CREATININE 0.9 mg/dL (0.6-1.3); GFR ARICAN-AMERICAN 122 mL/min (>90); GLUCOSE 91 mg/dL (74-106); TOTAL BILIRUBIN 0.9 mg/dL (0.0-1.0); UREA NITROGEN, BLOOD 12 mg/dL (7-18)
[2022-03-19 14:31] LABS: ACETAMINOPHEN < 0.5 ug/ml (10-30); ALBUMIN 3.6 g/dL (3.4-5.0); ASPARTATE AMINOTRANSFERASE 138 U/L (15-37); SALICYLATE < 2.8 mg/dL (2.8-20.0)
[2022-03-19 15:03] LABS: APPEARANCE,URINE CLEAR (CLEAR); BILIRUBIN,URINE NEGATIVE (NEGATIVE); BLOOD, URINE NEGATIVE (NEGATIVE); COLOR,URINE YELLOW (YELLOW); LEUKOCYTE ESTERASE ,URINE NEGATIVE (NEGATIVE); NITRITE, URINE NEGATIVE (NEGATIVE); PH,URINE 7.5 (5.0-9.0); UGLUCOSE NEGATIVE (NEGATIVE)
--- NOTE | 2022-03-19 16:56 | NUR ---
DR COLORADO AT BEDSIDE FOR REEVAL
[2022-03-19 16:57] VITALS: BP 115/70
[2022-03-19 17:01] LABS: BENZODIAZEPINE, URINE POSITIVE ng/mL (NEG <=200)
[2022-03-19] MEDS ORDERED: LIB25 PO ×2 (17:33→17:35)
--- NOTE | 2022-03-19 17:49 | NUR ---
Patient discharged with v/s stable. Written and verbal after care instructions ABOUT ALCOHOL WITHDRAWAL given and explained. Patient alert, oriented and verbalized understanding of instructions. Ambulatory with steady gait. All questions addressed prior to discharge. ID band removed. Patient advised to follow up with PMD. Rx of LIBRIUM given. Patient educated on indication of medication including possible reaction and side effects. Opportunity to ask questions provided and answered.
[2022-03-19 18:05] LABS: BARBITURATE, URINE NEGATIVE ng/ml (NEG <=200); CANNABINOID, URINE NEGATIVE ng/mL (NEG <=50); COCAINE, URINE NEGATIVE ng/mL (NEG <=300); OPIATE, URINE NEGATIVE ng/mL (NEG <=2000); PHENCYCLIDINE SCREEN,URINE NEGATIVE ng/mL (NEG <=25)
== END 2022-03-19 17:49 | disposition home or self-care (01) ==
LOC: MED 12:29
DX: F10.239 Alcohol dependence with withdrawal, unspecified (principal); R07.9 Chest pain, unspecified; R44.0 Auditory hallucinations; R44.1 Visual hallucinations; I10 Essential (primary) hypertension; F12.90 Cannabis use, unspecified, uncomplicated; Z79.899 Other long term (current) drug therapy
CPT/HCPCS: 36415; 71045; 80053; 80305; 81003; 84484; 85025; 93005; 96374; 99285; G0480; G0482; J3360; J7030

== ENCOUNTER 2022-08-12 03:25 | Emergency (ER) | payer MEDICAID ==
[~2022-08-12] VITALS: Ht 172.7 cm; Wt 74.8 kg
[2022-08-12 03:30] VITALS: BP 135/80
--- NOTE | 2022-08-12 03:40 | NUR ---
PT BIB AMBULANCE AND TO BED #6
[2022-08-12] MEDS ORDERED: LORazepam 1 MG TAB PO ONE (03:45)
[2022-08-12] MEDS ORDERED: ONDANSETRON 4 MG ODT PO ONE (03:45)
--- NOTE | 2022-08-12 03:45 | NUR ---
DR. ENRIQUE AT BEDSIDE.
[2022-08-12] MEDS ORDERED: DICYCLOMINE HCL LIQUID 20 MG, ALUMINUM HYD/MAG/SIMETHICONE 30 ML, LIDOCAINE VISCOUS 2% ... PO ONE ×3 (04:10)
[2022-08-12] MEDS ORDERED: OMEP40EC24 PO ×2 (04:12→05:10)
[2022-08-12] MEDS ORDERED: ATA25 PO ×2 (04:12→05:10)
[2022-08-12] MEDS ORDERED: DICYCLOMINE HCL LIQUID 10 MG/5 ML UDC ONE (04:16)
[2022-08-12] MEDS ORDERED: ALUMINUM HYD/MAG/SIMETHICONE 30 ML UDC ONE (04:16)
[2022-08-12] MEDS ORDERED: LIB25 PO ×2 (04:37→05:10)
[2022-08-12 05:13] VITALS: BP 135/80
--- NOTE | 2022-08-12 05:15 | NUR ---
Patient discharged with v/s stable. Written and verbal after care instructions given and explained. New rx atarax, omeprazole. Patient verbalized understanding. Ambulatory with steady gait. [employer] called to take patient home. All questions addressed prior to discharge. Advised to follow up with PMD.
== END 2022-08-12 05:13 | disposition home or self-care (01) ==
LOC: MED 03:25
DX: R07.89 Other chest pain (principal); R11.2 Nausea with vomiting, unspecified; F41.9 Anxiety disorder, unspecified; Z79.899 Other long term (current) drug therapy
CPT/HCPCS: 93005; 99284; Q0162

== ENCOUNTER 2023-12-07 19:00 | Emergency (ER) | payer MEDICAID ==
[~2023-12-07] VITALS: Ht 168.3 cm; Wt 71.8 kg
[~2023-12-07 19:00] MED LIST changes: +ATA25 PO; +CHLO-1446 PO; +CHLO-757 PO; -LIB25 PO; +NAPR-337 PO; -NAPR-54 PO; +OMEP40EC24 PO
[2023-12-07 19:03] VITALS: BP 130/91; PULSE 61; RESP 18; TEMP 97.5; O2SAT 99
[2023-12-07] MEDS: NACL 0.9% 1,000 ML IV ONE (20:23)
[2023-12-07] MEDS: LORazepam 2 MG/ML VIAL IVP ONE (20:24)
[2023-12-07] MEDS: ONDANSETRON 4 MG/2 ML VIAL IVP ONE (21:47)
[2023-12-07] MEDS ORDERED: CHLO-757 PO (22:28)
[2023-12-07] MEDS ORDERED: ONDA-188 SL (22:38)
[2023-12-07 22:57] VITALS: BP 136/93; PULSE 62; RESP 18; TEMP 97.5; O2SAT 98
== END 2023-12-07 22:57 | disposition home or self-care (01) ==
LOC: MED 19:00
DX: F10.239 Alcohol dependence with withdrawal, unspecified (principal); I10 Essential (primary) hypertension; Z86.69 Personal history of other diseases of the nervous system and sense organs; Z79.1 Long term (current) use of non-steroidal anti-inflammatories (NSAID); Z79.899 Other long term (current) drug therapy; Y90.9 Presence of alcohol in blood, level not specified
CPT/HCPCS: 96361; 96374; 96375; 99284; J2060; J2405; J7030; 99283